=== PATIENT | male | born 1985 | race Caucasian/White ===

== ENCOUNTER 2019-03-09 14:47 | Emergency (ER) | payer BC, SELFPAY ==
[2019-03-09 14:51] VITALS: BP 139/88; PULSE 94; RESP 14; TEMP 36.4; O2SAT 100
--- NOTE | 2019-03-09 14:54 | DI.RAD.S_ITS ---
PROCEDURE: XR HAND RT MIN 3V INDICATIONS: pain x 1 week, trailer fell on it TECHNIQUE: 3 views of the hand(s) acquired. COMPARISON: None. FINDINGS: Bones: No fractures or dislocations. Carpal bones are normally aligned. No suspicious bony lesions. Soft tissues: No suspicious soft tissue calcifications. IMPRESSION: Normal plain films, without displaced fractures. Dictated by: Alexis Sanabria M.D. on 03/09/2019 at 14:26 Approved by: Alexis Sanabria M.D. on 03/09/2019 at 14:27
[2019-03-09 14:55] VITALS: BP 139/88; PULSE 94; RESP 14; TEMP 36.4; O2SAT 100
--- NOTE | 2019-03-09 15:07 | ED.UPPEXIN ---
HPI - Extremity Injury (Upper) <GRUPO Rincon - Last Filed: 03/09/19 17:03> General Chief Complaint: Extremity Injury, Upper Stated Complaint: rt hand possible break Time Seen by Provider: 03/09/19 14:52 Source: patient Mode of arrival: Ambulatory Limitations: no limitations History of Present Illness HPI narrative: 33-year-old male presents emergency department today complaining of dull aching 7/10 right hand pain as worse with movement. He states he was hiking a trailer and dropped the trailer hitch onto his hand a week ago. He states he feels like there are a few things ?floating? on the lateral aspect of his wrist/hand. He states he has had previous fractures to his hand was unsure of the exact place. He denies any elbow pain or trauma, shoulder pain, head trauma, nausea, vomiting, diarrhea, fevers, due to decreased strength in upper extremity, or chest pain. 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 Related Data Home Medications Medication Instructions Recorded Confirmed No Known Home Medications 03/09/19 03/09/19 Allergies Allergy/AdvReac Type Severity Reaction Status Date / Time No Known Drug Allergies Allergy Verified 03/09/19 14:54 Review of Systems <GRUPO Rincon - Last Filed: 03/09/19 17:03> Review of Systems Narrative: REVIEW OF SYSTEMS: GENERAL: Denies fever or chills. HENT: No head trauma. EYES: No double vision or vision loss. CARDIOVASCULAR: No chest pain or syncope. RESPIRATORY: No shortness of breath or cough. GASTROINTESTINAL: No nausea, vomiting, diarrhea, or constipation. GENITOURINARY: No flank pain or dysuria. MUSCULOSKELETAL: Complains of right hand pain, see HPI. INTEGUMENTARY: No rash, lesions, or pruritus. NEURO: No numbness, tingling. PSYCH: No behavior or mood changes. Patient History <GRUPO Rincon - Last Filed: 03/09/19 17:03> Medical History No significant medical problems (Acute) Social History Smoking Status: Current every day smoker tobacco type: cigarettes alcohol intake frequency: 0-2 drinks per day Substance Use Type: marijuana Exam <GRUPO Rincon - Last Filed: 03/09/19 17:03> Narrative Exam Narrative: PHYSICAL EXAMINATION: GENERAL: Well groomed, alert, and cooperative. Answers questions promptly and appropriately. Vital signs noted. HENT: Normocephalic, atraumatic. EYES: Symmetrical, sclera white, no periorbital swelling. CARDIOVASCULAR: S1 and S2 sounds normal. Regular rate and rhythm, no murmurs, clicks, or bruits. RESPIRATORY: Normal respiratory rate, trachea midline, airway patent. No stridor, nasal flaring or accessory muscle use. Lungs are clear in all michelle. MUSCULOSKELETAL: Slight tenderness to 5th metatarsal and ulnar aspect of right wrist. Patient has full range of motion of wrist but reports increased pain with hyper extension. No ecchymosis, erythema, or swelling noted. Small amount of crepitus noticed to 5th metatarsal. Normal gait and coordination. Equal tone and mass bilaterally. EXTREMITIES: CMS intact. No pedal edema. SKIN: Warm, dry, soft, appropriate color for ethnicity. No lesions, rashes, or wounds. NEURO: Alert and Oriented X 3. No sensory deficits. PSYCH: Appropriate affect and mood. Initial Vital Signs Initial Vital Signs: Vital Signs Temperature 97.6 F 03/09/19 14:51 Pulse Rate 94 H 03/09/19 14:51 Respiratory Rate 14 03/09/19 14:51 Blood Pressure 139/88 03/09/19 14:51 Pulse Oximetry 100 03/09/19 14:51 <Sandra Heredia DO - Last Filed: 03/10/19 07:38> Initial Vital Signs Initial Vital Signs: Vital Signs Temperature 97.6 F 03/09/19 14:51 Pulse Rate 94 H 03/09/19 14:51 Respiratory Rate 14 03/09/19 14:51 Blood Pressure 139/88 03/09/19 14:51 Pulse Oximetry 100 03/09/19 14:51 Course <GRUPO Rincon - Last Filed: 03/09/19 17:03> Course Course Narrative: Patient was given a Velcro splint for his wrist to wear at night for the next 2 weeks. Orders Ordered: ED Orders 03/09/19 14:54 XR hand RT min 3V Stat Vital Signs Vital signs: Vital Signs - 8 hr 03/09/19 14:51 03/09/19 14:55 03/09/19 15:08 Temperature 97.6 F 97.6 F Pulse Rate 94 H 94 H Pulse Rate [Right Radial] 80 Respiratory Rate 14 14 Blood Pressure 139/88 139/88 Pulse Oximetry 100 100 <Sandra Heredia DO - Last Filed: 03/10/19 07:38> Orders Ordered: ED Orders 03/09/19 14:54 XR hand RT min 3V Stat Vital Signs Vital signs: Vital Signs - 8 hr 03/09/19 14:51 03/09/19 14:55 03/09/19 15:08 Temperature 97.6 F 97.6 F Pulse Rate 94 H 94 H Pulse Rate [Right Radial] 80 Respiratory Rate 14 14 Blood Pressure 139/88 139/88 Pulse Oximetry 100 100 MDM - Extremity Injury (Upper) <GRUPO Rincon - Last Filed: 03/09/19 17:03> Medical Records Attestation: I reviewed the patient's medical records. Lab Data Attestation: I reviewed the patient's lab results. Imaging Data Wrist Xray: Radiologist's impression: [place] [id number] XRay Report Signed Patient: Carmelo Zee MMR#: [id number] : 1985Acct:[id number] Age/Sex: MDate of Service: 03/09/19 Loc: ED Accession Number: [id number] Procedure: XR hand RT min 3V Ordering Provider: Mili Pniedo PROCEDURE: XR HAND RT MIN 3V INDICATIONS: pain x 1 week, trailer fell on it TECHNIQUE: 3 views of the hand(s) acquired. COMPARISON: None. FINDINGS: Bones: No fractures or dislocations. Carpal bones are normally aligned. No suspicious bony lesions. Soft tissues: No suspicious soft tissue calcifications. IMPRESSION: Normal plain films, without displaced fractures. Dictated by: Alexis Sanabria M.D. on 03/09/2019 at 14:26 Approved by: Alexis Sanabria M.D. on 03/09/2019 at 14:27 MDM Narrative Medical decision making narrative: Differential includes contusion, tendinitis, and fracture. Less likely fracture due to negative x-rays. I suspect patient's symptoms are caused by a combination of a contusion from the direct trauma and underlying tendinitis from his job. Patient was instructed to use Tylenol and ibuprofen for pain. He was given a wrist splint to use for pain as well. Follow-up instructions given and and return precautions given. Discharge Plan Departure Patient Disposition: Home Clinical Impression: Sprain and strain of wrist Discharge Date/Time: 03/09/19 16:00 Instructions: DI for Wrist Sprain Activity Restrictions/Additional Instructions: Thank you for entrusting me with your care today. As discussed, your x-rays are negative for any fractures. It is possible your pain is due to a contusion and/or tendinitis. We have given you a wrist brace, you may wear this at night and will you work for the next 2 weeks to help improve pain. Take ibuprofen as needed for pain. Follow up with your primary care provider in the next few weeks for re-evaluation. Return emergency department if you develop new or worsening symptoms such as chest pain, shortness of breath, syncope, seizures, or other concerns. Prescriptions: No Action No Known Home Medications RF: 0
[2019-03-09 15:08] VITALS: PULSE 80
== END 2019-03-09 16:00 | disposition home or self-care (01) ==
PROVIDERS: Emergency Provider Nurse Practitioner
DX: S63.501A Unspecified sprain of right wrist, initial encounter (principal); S66.911A Strain of unspecified muscle, fascia and tendon at wrist and hand level, right hand, initial encounter
CPT/HCPCS: 73130; 99282; 99283